=== PATIENT | female | born 1965 | race Caucasian/White ===

== ENCOUNTER 2017-07-18 13:12 | Emergency (ER) | payer OTHER ==
[~2017-07-18] VITALS: Ht 172.7 cm; Wt 60.8 kg
[2017-07-18] MEDS ORDERED: VENTOLIN HFA18 GM INH (13:24)
--- NOTE | 2017-07-19 07:06 | EKG ---
[facility] [address] [facility] [place], [place] [address] Signed Sinus tachycardia Otherwise normal ECG No previous ECGs available Confirmed by LY VICKERS MD ([id number] on 07/19/2017 7:06:04 AM Electronically Signed By: LY VICKERS MD 07/19/17 0706 PATIENT NAME: EULA ROBERT Electrocardiogram DATE OF : 69 PHYSICIAN: LY VICKERS MD REPORT #: [id number] REPORT IS CONFIDENTIAL AND NOT TO BE RELEASED WITHOUT AUTHORIZATION
== END 2017-07-18 15:22 | disposition home or self-care (01) ==
LOC: ED 13:12
DX: R07.89 Other chest pain (principal); F41.9 Anxiety disorder, unspecified; J45.909 Unspecified asthma, uncomplicated; F17.200 Nicotine dependence, unspecified, uncomplicated
CPT/HCPCS: 71046; 80053; 84484; 85025; 93005; 93010; 99284